=== PATIENT | female | born 1975 | race Caucasian/White ===

== ENCOUNTER 2017-09-03 09:42 | Emergency (ER) | payer OTHER ==
[~2017-09-03] VITALS: Ht 165.1 cm; Wt 115.7 kg
[2017-09-03] MEDS ORDERED: SYNTHROID125 MCG PO (11:26)
[2017-09-03] MEDS ORDERED: POLYMYXIN B-TMP10 ML OPH (11:27)
[2017-09-03] MEDS ORDERED: VIGAMOX3 ML OPH (11:27)
--- NOTE | 2017-09-03 12:07 | ED GENERAL ADULT ---
History of Present Illness General Chief Complaint: Eye Problems Stated Complaint: EYE INFECTION Source: patient Exam Limitations: no limitations Vital Signs & Intake/Output Vital Signs & Intake/Output Vital Signs Date Time Temp Pulse Resp B/P B/P Pulse O2 O2 Flow FiO2 Mean Ox Delivery Rate 09/03 1245 98.3 88 18 124/789 97 Room Air 09/03 1146 Room Air 09/03 0952 99.5 84 15 118/83 96 Room Air Room Air Allergies Coded Allergies: cefaclor (From CECLOR) (Intermediate, RASH 09/03/17) Reconcile Medications Levothyroxine Sodium (Synthroid) 125 MCG TABLET 1 TAB PO DAILY AC THYROID ( Reported) Moxifloxacin Hydrochloride (Vigamox) 0.5 % DROPS 1 GTT OPH TID EYE (Reported) Moxifloxacin Hydrochloride (Vigamox) 0.5 % DROPS 1 GTT OD 4 TIMES/DAY conjunctivitis Polymyxin B Sulf/Trimethoprim (Polymyxin B-Tmp Eye Drops) 10,000 UNIT-1 MG/ML DROPS 1 GTT OPH 4 TIMES/DAY EYE (Reported) Triage Note: PT TO ED FOR C/C OF R EYE IRRITATION, SWELLING, REDNESS. PT HAS BEEN SELF MEDICATING WITH POLYTRIM EYE DROPS, AMOXICILLIN AND ANOTHER ANTIBIOTIC. REPORTS CRUSTING TO EYE. Triage Nurses Notes Reviewed? yes Onset: Gradual Duration: day(s): Timing: single episode today : No Patient currently breastfeeds: No HPI: 41 y/o female with h/o hypothyroid presenting with right eye redness, itching, and watery discharge 2 days. States that her son is currently being treated for pinkeye, and then developed symptoms shortly after. He was given Polytrim, which she has been using without relief. Patient does not wear contacts. Denies fevers, eye trauma, eye pain, visual changes, photophobia (Dee Forte) Past History Travel History Traveled to [place] past 21 day No Medical History Any Pertinent Medical History? see below for history Endocrine: HYPOTHYROID Surgical History Surgical History: non-contributory Psychosocial History What is your primary language Welsh Tobacco Use: Never used ETOH Use: denies use Illicit Drug Use: denies illicit drug use Family History Hx Contributory? No (Dee Forte) Review of Systems Review of Systems Constitutional: Reports: no symptoms. EENTM: Reports: see HPI. Respiratory: Reports: no symptoms. Cardiovascular: Reports: no symptoms. GI: Reports: no symptoms. Genitourinary: Reports: no symptoms. Musculoskeletal: Reports: no symptoms. Skin: Reports: no symptoms. Neurological/Psychological: Reports: no symptoms. Hematologic/Endocrine: Reports: no symptoms. Immunologic/Allergic: Reports: no symptoms. (Dee Forte) Physical Exam Physical Exam General Appearance: well developed/nourished, no apparent distress, alert, awake , comfortable Head: atraumatic, normal appearance Eyes: Right: other. Bilateral: PERRL, EOMI. Ears, Nose, Throat: normal ENT inspection Neck: normal inspection, +right preauricular LAd Respiratory: normal breath sounds, lungs clear Cardiovascular: regular rate/rhythm Gastrointestinal: soft, non-tender Back: normal inspection Extremities: normal inspection Neurologic/Psych: awake, alert, oriented x 3, normal gait, normal mood/affect Skin: intact, normal color, warm/dry Comments: On exam of the right eye there are conjunctival injections, positive watery discharge, no purulent discharge, trace infraorbital edema, EOMs intact, pupils round and reactive, no visualized foreign bodies when the lids are everted and swept, positive right-sided preauricular lymphadenopathy, the eye is non-tender to palpation. Visual acuity left eye 20/20 and visual acuity right eye 20/30. Core Measures ACS in differential dx? No CVA/TIA Diagnosis: No Sepsis Present: No Sepsis Focused Exam Completed? No (Dee Forte) Progress Differential Diagnoses I considered the following diagnoses in my evaluation of the patient: [Likely with viral versus allergic conjunctivitis, low concern for bacterial conjunctivitis but will cover them empirically due to patient's concern. Low concern for foreign body versus scleritis/episcleritis versus iritis/uveitis] Plan of Care: Given Rx Vigamox. Counseled on supportive care with antihistamines. Given strict return precautions. Initial ED EKG: none (Dee Forte) Departure Departure Disposition: HOME OR SELF CARE Condition: Stable Clinical Impression Primary Impression: Conjunctivitis Referrals: Patient Has No Primary Care Dr (PCP/Family) Additional Instructions: Use Vigamox drops as prescribed. Use Benadryl or Claritin to help alleviate symptoms. Follow-up with your primary care provider for reevaluation. Return to the emergency department for any new or worsening symptoms. Departure Forms: Customer Survey General Discharge Information Prescriptions: Current Visit Scripts Moxifloxacin Hydrochloride (Vigamox) 1 GTT OD 4 TIMES/DAY #3 ML (Dee Forte) PA/SUPERVISOR NET MAKING Co-Sign Statement Statement: ED Attending supervision documentation- I saw and evaluated the patient. I have also reviewed all the pertinent lab results and diagnostic results. I agree with the findings and the plan of care as documented in the PA's/SUPERVISOR NET MAKING's documentation. x I have reviewed the ED Record and agree with the PA's/SUPERVISOR NET MAKING's documentation. [] Additions or exceptions (if any) to the PAs/SUPERVISOR NET MAKING's note and plan are summarized below: [] (Jose Roberto SPANN,Gene) Critical Care Note Critical Care Note Critical Care Time: non-applicable (Dee Forte)
[2017-09-03] MEDS ORDERED: VIGAMOX3 ML OD (12:26)
[2017-09-03 12:45] VITALS: BP 124/789
== END 2017-09-03 12:51 ==
LOC: ERH 09:42
DX: H10.9 Unspecified conjunctivitis (principal)